=== PATIENT | male | born 1995 | race Caucasian/White ===

== ENCOUNTER 2019-02-17 20:45 | Emergency (ER) | payer OTHER ==
[~2019-02-17] VITALS: Ht 185.4 cm; Wt 83.9 kg
--- NOTE | ~2019-02-17 | EKG ---
[place], [place] ELECTROCARDIOGRAM REPORT NAME: KEIRY MADDEN UNIT #: [id number] ROOM: DOCTOR: IRINEO DRAFT REPORT BIRTHDATE: [birth year] [facility] Test Date: 2019-02-17 Test Time: 20:58:55 Pat Name: KEIRY MADDEN Department: Room: Gender: Street [employer]: : 1995 Requested By: ROBYN SHAFER Order Number: [id number] Reading MD: Magan Osorio MD Measurements Intervals [place] Rate: 101 P: 62 MO: 167 QRS: 76 QRSD: 94 T: 42 QT: 337 QTc: 437 Interpretive Statements Sinus tachycardia Nonspecific ST T changes Electronically Signed On 02-21-2019 8:07:41 PDT by Magan Osorio MD CM:EKGRPT:ELECTROCARDIOGRAM REPORT [id number] ROBYN MARIE DRAFT REPORT ROBYN SHAFER DO
[~2019-02-17 20:45] MED LIST: ADDERALL XR10 MG PO; FLUOXETINE20 MG PO; MOTRIN800 MG PO
[2019-02-17 21:09] LABS: BASO % 0.7 % (0.0-1.0); EOS # 0.1 10*3/uL (0.0-0.4); HEMATOCRIT 44.2 % (42.0-52.0); HEMOGLOBIN 15.2 g/dl (14.0-18.0); LYMPH # 2.1 10*3/uL (1.3-4.4); LYMPH % 37.1 % (27.0-41.0); MEAN CELL VOLUME 86.5 fl (80.0-94.0); MEAN CORPUSCULAR HGB 29.7 pg (27.0-31.0); MEAN CORPUSCULAR HGB CONC 34.4 g/dl (33.0-37.0); MEAN PLATELET VOLUME 9.8 fl (9.6-12.3); MONO # 0.4 10*3/uL (0.1-1.0); MONO % 7.2 % (3.0-9.0); NEUT # 2.9 10*3/uL (2.3-7.9); NEUT % 52.6 % (47.0-73.0); PLATELET COUNT AUTOMATED 250 10*3/uL (130-400); RED BLOOD COUNT 5.11 10*6/uL (4.50-5.90); RED CELL DISTRI WIDTH 11.6 % (0-14.5); WHITE BLOOD COUNT 5.6 10*3/uL (4.8-10.8)
[2019-02-17 21:20] LABS: ACT PARTIAL THROMBO TIME 26.2 SECONDS (20.0-32.1)
[2019-02-17 21:26] LABS: ALBUMIN 4.8 gm/dl (3.1-4.5); ALKALINE PHOSPHATASE 101 U/L (45-117); BUN 9 mg/dl (7-24); CHLORIDE 103 mmol/L (98-107); CREATININE 1.05 mg/dL (0.70-1.30); POTASSIUM 3.5 mmol/L (3.5-5.1); SGOT/AST 32 IU/L (3-35); SGPT/ALT 55 U/L (12-78); SODIUM 137 mmol/L (136-145); TOTAL PROTEIN 7.5 gm/dL (6.4-8.2); TROPONIN I < 0.015 ng/ml (<0.045)
== END 2019-02-17 23:28 | disposition home or self-care (01) ==
LOC: ED 20:45
PROVIDERS: Student in an Organized Health Care Education/Training Program
DX: E86.0 Dehydration (principal); R42 Dizziness and giddiness; R79.1 Abnormal coagulation profile; R07.89 Other chest pain; R20.0 Anesthesia of skin; Z79.899 Other long term (current) drug therapy; Z90.89 Acquired absence of other organs

== ENCOUNTER → 2021-09-23 | Outpatient (CLI) | payer OTHER | END | disposition home or self-care (01) | LOC: COVID19 15:53 | PROVIDERS: ATTEND Student in an Organized Health Care Education/Training Program | DX: Z20.822 Contact with and (suspected) exposure to COVID-19 (principal) ==